=== PATIENT | female | born 1995 | race Caucasian/White ===

== ENCOUNTER 2018-09-17 08:52 | Inpatient (IN) ==
[2018-09-17] MEDS ORDERED: MEPERIDINE 50 MG/1 ML VIAL IV PRN (09:24)
[2018-09-17] MEDS ORDERED: ONDANSETRON 4 MG/2 ML VIAL IV PRN ×2 (09:24→13:20)
[2018-09-17] MEDS ORDERED: LACTATED RINGERS 1,000 ML IV SCH (09:30)
[2018-09-17] MEDS ORDERED: OXYTOCIN/LR 20 UNIT/1,000 ML BAG IV SCH (09:30)
[2018-09-17] MEDS ORDERED: PROMETHAZINE 25 MG/1 ML VIAL IM ONE (09:38)
[2018-09-17] MEDS ORDERED: LACTATED RINGERS 1,000 ML IV ONE (09:38)
[2018-09-17] MEDS ORDERED: FAMOTIDINE 20 MG/2 ML VIAL IV ONE (09:38)
[2018-09-17] MEDS ORDERED: CITRIC ACID/SODIUM CITRATE 30 ML UDCUP PO ONE (09:38)
[2018-09-17] MEDS ORDERED: hydrOXYzine HCL 25 MG/1 ML VIAL IM PRN (09:38)
[2018-09-17] MEDS ORDERED: ONDANSETRON 4 MG/2 ML VIAL IV ONE (09:38)
[2018-09-17] MEDS ORDERED: ePHEDrine 50 MG/ML AMP IV PRN (09:38)
[2018-09-17] MEDS ORDERED: NALOXONE 0.4 MG/ML VIAL IV PRN (09:38)
[2018-09-17] MEDS ORDERED: diphenhydrAMINE 50 MG/1 ML VIAL IV PRN ×2 (09:38)
[2018-09-17 09:40] LABS: Basophils % 0.4 % (0.0-0.8); Eosinophils % 0.2 % (0.00-10.9); Hematocrit 33.2 VOL% (35.7-47.0); Hemoglobin 10.4 GM/DL (12.0-16.0); Immature Granulocytes % 2.3 %; Immature Granulocytes Absolute 0.22 #; Lymphocytes # 2.5 10*3/uL (1.4-4.0); Lymphocytes % 26.4 % (21.3-54.2); Mean Corpuscular HGB Conc 31.3 GM/DL (32-36); Mean Corpuscular Hemoglobin 25 PG (27-34); Mean Platelet Volume 11.5 FL (9.6-12.0); Monocytes # 0.6 10*3/uL (0.11-0.8); Monocytes % 6.6 % (1.7-12.7); Neutrophils # 6.2 10*3/uL (1.4-7.4); Neutrophils % 64.1 % (38.7-73.9); Platelet Count 189 T/CUMM (130-400); Red Cell Distribution Width 13.5 % (9.3-17.3); White Blood Count 9.6 T/CUMM (4-12)
[2018-09-17] MEDS ORDERED: AMPICILLIN 2,000 MG VIAL ONE (09:44)
[2018-09-17] MEDS ORDERED: AMPICILLIN INJ 2,000 MG in SODIUM CHLORIDE 0.9% 100 ML IV ONE (09:44)
[2018-09-17] MEDS ORDERED: SODIUM CHLORIDE 0.9% 100 ML IV ONE (09:44)
[2018-09-17] MEDS ORDERED: fentaNYL 2 MCG/ROPIV 0.2% EPID 100 ML EPIDURAL SCH (10:00)
[2018-09-17] MEDS ORDERED: BISACODYL 10 MG SUPP RECTAL PRN (13:20)
[2018-09-17] MEDS ORDERED: OXYTOCIN/LR 20 UNIT/1,000 ML BAG IV ONE (13:20)
[2018-09-17] MEDS ORDERED: LANOLIN 50% CREAM 0.3 OZ TUBE TOP PRN (13:20)
[2018-09-17] MEDS ORDERED: ACETAMINOPHEN 325 MG TABLET PO PRN (13:20)
[2018-09-17] MEDS ORDERED: WITCH HAZEL PADS 100/JAR TOP PRN (13:20)
[2018-09-17] MEDS ORDERED: RHO(D) IMMUNE GLOBULIN 300 MCG SYRINGE IM ONE (13:20)
[2018-09-17] MEDS ORDERED: HYDROCORTISONE 2.5% RECTAL CREAM 30 GM TUBE TOP PRN (13:20)
[2018-09-17] MEDS ORDERED: DIPH/TET/ACEL PERT BOOSTER VACCINE 0.5 ML VIAL IM ONE (13:30)
[2018-09-17] MEDS ORDERED: MEASLES/MUMPS/RUBELLA VACCINE 0.5 ML VIAL SUBCUT ONE (13:30)
[2018-09-17] MEDS: IBUPROFEN 800 MG TABLET PO PRN (17:07)
[2018-09-17] MEDS: oxyCODONE/ACETAMINOPHEN 5-325 MG TABLET PO PRN ×2 (18:54→23:17)
[2018-09-17] MEDS: DOCUSATE SODIUM 100 MG CAPSULE PO SCH (21:30)
[2018-09-18] MEDS: BENZOCAINE 20%/MENTHOL 0.5% SPRAY 56 GM CAN TOP PRN (02:05)
[2018-09-18] MEDS: oxyCODONE/ACETAMINOPHEN 5-325 MG TABLET PO PRN ×3 (05:19→17:00)
[2018-09-18 05:23] LABS: Basophils % 0.4 % (0.0-0.8); Eosinophils # 0.1 10*3/uL (0.0-0.87); Eosinophils % 1.1 % (0.00-10.9); Hematocrit 29.6 VOL% (35.7-47.0); Hemoglobin 9.3 GM/DL (12.0-16.0); Immature Granulocytes % 1.7 %; Immature Granulocytes Absolute 0.18 #; Lymphocytes # 2.1 10*3/uL (1.4-4.0); Lymphocytes % 19.8 % (21.3-54.2); Mean Corpuscular HGB Conc 31.4 GM/DL (32-36); Mean Corpuscular Hemoglobin 26 PG (27-34); Mean Corpuscular Volume 81.5 FL (87-102); Mean Platelet Volume 11.4 FL (9.6-12.0); Monocytes # 0.7 10*3/uL (0.11-0.8); Monocytes % 6.5 % (1.7-12.7); Neutrophils # 7.4 10*3/uL (1.4-7.4); Neutrophils % 70.5 % (38.7-73.9); Platelet Count 169 T/CUMM (130-400); Red Blood Count 3.63 MC/CUMM (3.8-5.5); Red Cell Distribution Width 13.5 % (9.3-17.3); White Blood Count 10.5 T/CUMM (4-12)
[2018-09-18] MEDS: IBUPROFEN 800 MG TABLET PO PRN ×2 (07:49→22:20)
[2018-09-18] MEDS: DOCUSATE SODIUM 100 MG CAPSULE PO SCH ×2 (09:40→22:10)
[2018-09-18 19:56] LABS: Alanine Aminotransferase 15 U/L (13-56); Albumin 2.3 G/DL (3.4-5.0); Alkaline Phosphatase 135 U/L (45-117); Aspartate Amino Transferase 17 U/L (0-37); Bilirubin,Total < 0.39 MG/DL (0.2-1.0); Blood Urea Nitrogen 6 MG/DL (7-18); Calcium 8.7 MG/DL (8.5-10.1); Glucose 110 MG/DL (74-106); Osmolality,Calculated 275.5 MOS/KG (273-304); Sodium 139 MMOL/L (136-145); Total Protein 6.1 G/DL (6.4-8.3)
[2018-09-18] MEDS ORDERED: MAGNESIUM SULF RIDER 4 GM in PREMIX 1 EACH IV PRN (20:15)
[2018-09-18] MEDS ORDERED: MAGNESIUM SULF RIDER 2 GM in PREMIX 1 EACH IV PRN (20:15)
[2018-09-19] MEDS: oxyCODONE/ACETAMINOPHEN 5-325 MG TABLET PO PRN ×4 (04:17→21:13)
[2018-09-19] MEDS ORDERED: predniSONE 20 MG TABLET PO SCH (09:00)
[2018-09-19] MEDS: DOCUSATE SODIUM 100 MG CAPSULE PO SCH ×2 (09:17→20:03)
[2018-09-19] MEDS ORDERED: methylPREDNISolone 4 MG TABLET PO SCH (17:00)
[2018-09-19] MEDS: methylPREDNISolone 4 MG TABLET PO SCH ×2 (19:10→20:01)
[2018-09-19] MEDS: IBUPROFEN 800 MG TABLET PO PRN (20:05)
[2018-09-20] MEDS: oxyCODONE/ACETAMINOPHEN 5-325 MG TABLET PO PRN (04:17)
[2018-09-20] MEDS: IBUPROFEN 800 MG TABLET PO PRN (04:18)
[2018-09-20] MEDS: BENZOCAINE 20%/MENTHOL 0.5% SPRAY 56 GM CAN TOP PRN (06:20)
[2018-09-20] MEDS: methylPREDNISolone 4 MG TABLET PO SCH (07:25)
[2018-09-20 08:07] VITALS: BP 130/71
[2018-09-20] MEDS: DOCUSATE SODIUM 100 MG CAPSULE PO SCH (08:14)
== END 2018-09-20 11:45 | disposition home or self-care (01) | DRG 807 ==
LOC: N.LDOUT 08:52 → N.LD 08:53 → N.OB 17:53
PROVIDERS: ADMIT Specialist; ATTEND Specialist

== ENCOUNTER 2019-09-05 20:10 | Inpatient (IN) ==
[2019-09-05 20:46] LABS: Apearance,Urine CLEAR (Clear); Bacteria,Urine Occasional /HPF (Few); Bilirubin,Urine Negative (Negative); Blood, Urine Negative (Negative); Glucose,Urine (UA) 150 mg/dL (Negative); Ketones,Urine 5 mg/dL (Negative); Mucus,Urine Occasional /LPF (Occasional); Nitrite,Urine Negative (Negative); Protein,Urine Negative; RBC,Urine 2 /HPF (0-4); Squamous Epithelial Cell,Urine Occasional /HPF (0-10); Urine Color Yellow (Yellow); Urine Specific Gravity 1.027 (1.001-1.035); Urine Urobilinogen < 2.0 EU/DL (0.2-1.0); WBC,Urine 4 /HPF (0-6)
[2019-09-05] MEDS: LACTATED RINGERS 1,000 ML IV SCH ×2 (22:22→23:56)
[2019-09-05 22:29] LABS: Barbiturates Screen,Urine Negative (Negative); Benzodiazepines Screen,Urine Negative (Negative); Cannabinoid Screen,Urine Negative (Negative); Opiate Screen,Urine Negative (Negative); Phencyclidine Screen,Urine Negative (Negative)
[2019-09-05 22:50] LABS: Basophils % 0.4 % (0.0-0.8); Eosinophils # 0.1 10*3/uL (0.0-0.87); Eosinophils % 0.6 % (0.00-10.9); Hematocrit 31.5 VOL% (35.7-47.0); Hemoglobin 9.5 GM/DL (12.0-16.0); Immature Granulocytes % 3.2 %; Immature Granulocytes Absolute 0.26 #; Lymphocytes # 1.2 10*3/uL (1.4-4.0); Lymphocytes % 14.9 % (21.3-54.2); Mean Corpuscular HGB Conc 30.2 GM/DL (32-36); Mean Corpuscular Volume 73.1 FL (87-102); Mean Platelet Volume 10.3 FL (9.6-12.0); Neutrophils % 72.9 % (38.7-73.9); Platelet Count 195 T/CUMM (130-400); Red Blood Count 4.31 MC/CUMM (3.8-5.5); Red Cell Distribution Width 16.2 % (9.3-17.3); White Blood Count 8.2 T/CUMM (4-12)
[2019-09-05] MEDS ORDERED: MEPERIDINE 50 MG/1 ML VIAL IV PRN (23:29)
[2019-09-05] MEDS ORDERED: ONDANSETRON 4 MG/2 ML VIAL IV PRN (23:29)
[2019-09-05] MEDS ORDERED: ONDANSETRON 4 MG/2 ML VIAL IV ONE (23:31)
[2019-09-05] MEDS ORDERED: PROMETHAZINE 25 MG/1 ML VIAL IM ONE (23:31)
[2019-09-05] MEDS ORDERED: LACTATED RINGERS 1,000 ML IV ONE (23:31)
[2019-09-05] MEDS ORDERED: hydrOXYzine HCL 25 MG/1 ML VIAL IM PRN (23:31)
[2019-09-05] MEDS ORDERED: NALOXONE 0.4 MG/ML VIAL IV PRN (23:31)
[2019-09-05] MEDS ORDERED: FAMOTIDINE 20 MG/2 ML VIAL IV ONE (23:31)
[2019-09-05] MEDS ORDERED: LACTATED RINGERS 500 ML IV ONE (23:31)
[2019-09-05] MEDS ORDERED: diphenhydrAMINE 50 MG/1 ML VIAL IV PRN ×2 (23:31)
[2019-09-05] MEDS ORDERED: CITRIC ACID/SODIUM CITRATE 30 ML UDCUP PO ONE (23:31)
[2019-09-05] MEDS ORDERED: ePHEDrine 50 MG/ML AMP IV PRN (23:31)
[2019-09-05] MEDS ORDERED: LACTATED RINGERS 1,000 ML IV SCH (23:45)
[2019-09-05] MEDS ORDERED: fentaNYL 2 MCG/ROPIV 0.2% EPID 100 ML EPIDURAL SCH (23:45)
[2019-09-06 01:28] LABS: Amorphous Crystals,Urine Occasional /HPF (Few); Apearance,Urine CLEAR (Clear); Bilirubin,Urine Negative (Negative); Blood, Urine Negative (Negative); Glucose,Urine (UA) Negative (Negative); Ketones,Urine Negative (Negative); Mucus,Urine Occasional /LPF (Occasional); Nitrite,Urine Negative (Negative); Protein,Urine Negative; RBC,Urine <1 /HPF (0-4); Squamous Epithelial Cell,Urine Occasional /HPF (0-10); Urine Color Straw (Yellow); Urine Urobilinogen < 2.0 EU/DL (0.2-1.0)
[2019-09-06] MEDS: LACTATED RINGERS 1,000 ML IV SCH (01:28)
[2019-09-06] MEDS ORDERED: miSOPROStoL 200 MCG TABLET ONE (03:07)
[2019-09-06] MEDS ORDERED: METHYLERGONOVINE 0.2 MG/1 ML AMP ONE (03:07)
[2019-09-06] MEDS ORDERED: CARBOPROST TROMETHAMINE 250 MCG/ML AMP IM ONE (03:08)
[2019-09-06] MEDS: OXYTOCIN/LR 20 UNIT/1,000 ML BAG IV SCH ×2 (07:48→11:01)
[2019-09-06] MEDS: DOCUSATE SODIUM 100 MG CAPSULE PO SCH (20:36)
[2019-09-06] MEDS ORDERED: BENZOCAINE 20%/MENTHOL 0.5% SPRAY 56 GM CAN TOP PRN (23:16)
[2019-09-06] MEDS: IBUPROFEN 800 MG TABLET PO PRN (23:20)
[2019-09-07 05:42] LABS: Basophils % 0.3 % (0.0-0.8); Eosinophils # 0.3 10*3/uL (0.0-0.87); Eosinophils % 2.2 % (0.00-10.9); Hematocrit 25.5 VOL% (35.7-47.0); Hemoglobin 7.7 GM/DL (12.0-16.0); Immature Granulocytes % 2.7 %; Lymphocytes # 2.5 10*3/uL (1.4-4.0); Lymphocytes % 22.6 % (21.3-54.2); Mean Corpuscular HGB Conc 30.2 GM/DL (32-36); Mean Corpuscular Volume 73.3 FL (87-102); Mean Platelet Volume 11.3 FL (9.6-12.0); Monocytes % 5.1 % (1.7-12.7); Neutrophils % 67.1 % (38.7-73.9); Platelet Count 167 T/CUMM (130-400); Red Blood Count 3.48 MC/CUMM (3.8-5.5); Red Cell Distribution Width 16.3 % (9.3-17.3); White Blood Count 11.2 T/CUMM (4-12)
[2019-09-07] MEDS ORDERED: INFLUENZA VIRUS VACCINE 0.5 ML SYRINGE IM ONE (07:00)
[2019-09-07] MEDS: DOCUSATE SODIUM 100 MG CAPSULE PO SCH ×2 (09:24→20:07)
[2019-09-07] MEDS: FERROUS SULFATE 325 MG TABLET PO SCH ×3 (09:24→22:36)
[2019-09-07] MEDS: IBUPROFEN 800 MG TABLET PO PRN ×2 (12:09→20:07)
[2019-09-07] MEDS: PSEUDOEPHEDRINE 30 MG TABLET PO SCH ×2 (15:46→22:36)
[2019-09-07] MEDS: BENZOCAINE/MENTHOL LOZENGE 18/BOX PO PRN ×2 (15:55→20:08)
[2019-09-08] MEDS: PSEUDOEPHEDRINE 30 MG TABLET PO SCH ×2 (04:04→10:01)
[2019-09-08 07:36] VITALS: BP 121/68
[2019-09-08] MEDS ORDERED: WITCH HAZEL PADS 100/JAR TOP PRN (09:45)
[2019-09-08] MEDS ORDERED: HYDROCORTISONE 2.5% CREAM 30 GM TUBE TOP PRN (09:45)
[2019-09-08] MEDS ORDERED: DIPH/TET/ACEL PERT BOOSTER VACCINE 0.5 ML VIAL IM ONE (09:48)
[2019-09-08] MEDS: DOCUSATE SODIUM 100 MG CAPSULE PO SCH (10:01)
[2019-09-08] MEDS: FERROUS SULFATE 325 MG TABLET PO SCH (10:02)
[2019-09-08] MEDS: BENZOCAINE/MENTHOL LOZENGE 18/BOX PO PRN (11:28)
[2019-09-08] MEDS: IBUPROFEN 800 MG TABLET PO PRN (14:02)
== END 2019-09-08 14:45 | disposition home or self-care (01) | DRG 807 ==
LOC: N.LDOUT 20:10 → N.LD 20:12 → N.OB 09-06 14:33
PROVIDERS: ADMIT Specialist; ATTEND Specialist